=== PATIENT | male | born 1985 | race Caucasian/White ===

== ENCOUNTER 2022-12-07 13:35 | Outpatient (OUT) | payer SELFPAY | END 2022-12-07 13:36 | disposition home or self-care (01) | LOC: PST 13:36 | PROVIDERS: Visit Provider Urology | DX: Z01.818 Encounter for other preprocedural examination (principal); N20.1 Calculus of ureter ==

== ENCOUNTER 2022-12-08 07:19 | Day surgery (SDC) | payer BC, SELFPAY ==
[2022-12-08] VITALS (11 sets, daily range): BP systolic 104–132; BP diastolic 59–90; PULSE 45–65; RESP 9–23; TEMP 36.1–37; O2SAT 95–100; BMI 29.3
[2022-12-08] MEDS: LACTATED RINGER'S SOLUTION 1,000 ML 50 ML IV ×2 (07:45→09:34)
[2022-12-08] MEDS: CEFAZOLIN SODIUM/DEXTROSE,ISO 1 GM/50 ML IV.SOLN IV (08:44)
--- NOTE | 2022-12-08 09:48 | P.URON_ITS ---
Urology Surgery Operative Note Operative Note Procedure Date: 12/08/22 Time Out Performed: yes Pre-op Diagnosis: obstructing left ureteral calculus Post-op Diagnosis: same as pre-op Procedures performed: #1. Cystoscopy. #2. Left rigid ureteral dilation. #3. Left ureteroscopy. #4. Holmium laser lithotripsy of left ureteral calculus. #5. Stone fragments basket extraction. #6. Placement of 6 [place] variable length left ureteral stent Anesthesia: General-LMA Primary Surgeon: Matt Lau Complications: none Estimated blood loss (mL): 10 Findings: obstructing impacted left ureteral calculus. Copious amounts of purulence proximal to the stone Specimens: left ureteral stone fragments Indications for Procedures: this gentleman has a 6-7 mm left ureteral calculus that has been causing pain for many weeks. In fact, he had a similar stone 5 years ago that he never passed but the pain temporarily stopped. He now presents for cystoscopy left stent placement and possible definitive stone manipulation. He has signed an informed consent after all risks were explained. Detailed description of Procedure: The patient was brought to the operating room and placed on the operating room table in the supine position. SCDs were placed on the lower extremities and turned on and functioning during the entire case. Timeout was done by all parties in the room. We all agreed upon the patient's identification and the planned procedures for this patient. Genn. anesthesia was then administered. The patient was then repositioned into the modified dorsal lithotomy position. All pressure points were satisfactorily padded. Genitalia were sterilely prepped and draped in usual fashion.I started by passing a 22 [place] Olympus cystoscope per urethra and into the bladder. Panendoscopy in the bladder showed grade 2 trabeculation. There were no bladder tumors. There were a few small blood clots in the bladder. One could see blood clots coming from the left ureteral orifice. With fluoroscopy I could see a stone in the region of the distal left ureter. I then passed a Glidewire through the scope and cannulated the left ureter. I was able to get it beyond the stone up into the kidney. There was an immediate E flux of purulence which was under high-pressure and persisted for nearly 5 minutes. An 8 and 10 [place] rigid dilator was used to dilate the distal ureter. This allowed more purulence to expel from the left ureter. Once the purulence subsided I then removed the cystoscope and then passed a semirigid ureteroscope through the urethra into the bladder and into the left ureter. I had to have pressure on the water bag in order to see in the ureter due to blood clots and purulence. The stone was impacted into the wall of the ureter. I then passed a 365 ? holmium laser fiber through the scope and made contact with the stone after chiseling it off of the wall of the ureter. Laser lithotripsy was done at 6 W continuously. The stone fragmented into a few pieces. I then used a 0 tip nitinol basket and engaged pieces and dumped it into the bladder. I went up-and-down the ureter numerous times removing all pieces until the ureter was stone free.the ureteroscope was removed. I then backloaded the cystoscope over the wire and passed it into the bladder. I then slid a 6 [place] variable length ureteral stent over the wire up into the kidney. The wire was removed and there were good curls in the kidney and in the bladder. The Snakk Mediaick evacuator was then used to get all of the clots in stone pieces out from the base of the bladder. The stone pieces were sent for analysis. Bladder was drained of its contents and the scope was then removed. He was then transferred to a gursan antonio bed and wheeled to PACU in stable condition. He'll be discharged to home later today with a prescription for Vesicare and Keflex. We'll get his stent out in 2-3 weeks.
[2022-12-15 14:08] LABS: Calcium Oxalate Monohydrate 70 % (.); Calcium phosphate (hydroxyl) 30 % (.); Size 3x2 mm (.)
== END 2022-12-08 10:50 | disposition home or self-care (01) ==
PROVIDERS: PCP Family Medicine; Visit Provider Urology
PROC: (CPT 52356; principal; 2022-12-08 08:30)
DX: N20.1 Calculus of ureter (principal); Z87.442 Personal history of urinary calculi; N32.89 Other specified disorders of bladder
CPT/HCPCS: 52356; 76000; 82365; 99999; C1874; J2704